=== PATIENT | male | born 1950 | race Caucasian/White ===

== ENCOUNTER 2020-12-06 19:23 | Emergency (ER) | payer MEDICARE ==
[~2020-12-06] VITALS: Ht 177.8 cm; Wt 79.2 kg
[2020-12-06] MEDS ORDERED: LISI-170 PO (19:37)
--- NOTE | 2020-12-06 19:48 | NUR ---
PT WAS DX WITH COVID 9 DAYS AGO. PT CAME TO ED TO POTENTIALLY GET COVID ANTIBODIES. PT CO SOB, COUGH, AND FATIGUE. PT RESTING IN GURNEY. IV STARTED. BLOOD CULTURES DRAWN. BEDSIDE FOR ASSESSMENT
[2020-12-06] MEDS ORDERED: SODIUM CHLORIDE FLUSH 10ML SYR IVF ONE (20:00)
[2020-12-06 20:07] LABS: MEAN CORPUSCULAR HEMOGLOBIN 31.2 pg (27.5-34.5); MEAN CORPUSCULAR HGB CONC 33.5 g/dL (33.2-36.2); MEAN PLATELET VOLUME 8.1 fL (7.4-10.4); PLATELET COUNT 220 x10^3/uL (130-400); RED BLOOD COUNT 5.59 x10^6/uL (4.38-5.82); RED CELL DISTRIBUTION WIDTH 13.6 % (9.4-14.8)
[2020-12-06 20:20] LABS: ALBUMIN 3.4 g/dL (3.4-5.0); ANION GAP 7 mmol/L (5-15); CALCIUM 8.8 mg/dL (8.5-10.1); CHLORIDE 98 mmol/L (98-107)
[2020-12-06 20:30] LABS: ALANINE AMINOTRANSFERASE 27 U/L (12-78); ALKALINE PHOSPHATASE 80 U/L (45-117); BILIRUBIN,TOTAL 0.8 mg/dL (0.2-1.0); CREATININE 1.18 mg/dL (0.7-1.3); TOTAL PROTEIN 7.7 g/dL (6.4-8.2)
--- NOTE | 2020-12-06 20:51 | NUR ---
INFUSION STARTED. WILL CONTINUE TO MONITOR
[2020-12-06 20:55] LABS: MD YES
[2020-12-06 20:57] LABS: <PLATELET ESTIMATE> ADEQUATE; LYMPH#(MANUAL) 0.71 x10^3/uL (1-3.4); LYMPHS% (MANUAL) 8 % (22-44); MONOS#(MANUAL) 0.09 x10^3/uL (0.3-2.7); MONOS% (MANUAL) 1 % (2-9); SEGS% (MANUAL) 91 % (42-75)
[2020-12-06 20:58] LABS: <PLT MORPHOLOGY> NORMAL PLT MORPH; <RBC MORPHOLOGY> NORMAL
[2020-12-06] MEDS ORDERED: BAMLANIVIMAB 700 MG in SODIUM CHLORIDE 0.9% 250 ML IVPB ONE (21:00)
[2020-12-06] MEDS ORDERED: FILTER 0.22 MICRON IV ONE (21:00)
--- NOTE | 2020-12-06 21:02 | NUR ---
PT CONTINUES TO TOLERATE INFUSION WELL. NAD
--- NOTE | 2020-12-06 21:27 | NUR ---
PT REPORTS "IM FEELING GOOD"
--- NOTE | 2020-12-06 21:52 | NUR ---
INFUSION COMPLETE. PT REPORTS NO DISTRESS. WILL MONITOR FOR 1 HOUR
--- NOTE | 2020-12-06 22:03 | NUR ---
ASSUMED CARE FROM [facility].
[2020-12-06 22:45] VITALS: BP 145/94
== END 2020-12-06 23:04 | disposition home or self-care (01) ==
LOC: ED 19:53
DX: U07.1 COVID-19 (principal); J18.9 Pneumonia, unspecified organism; R06.00 Dyspnea, unspecified
CPT/HCPCS: 36415; 80053; 85025; 87040; 87635; 99285; J7050; M0239; Q0239; 99283